=== PATIENT | female | born 1955 | race American Indian/Alaskan Native ===

== ENCOUNTER 2017-07-12 12:06 | Emergency (ER) | payer MEDICARE ==
[2017-07-12 12:06] VITALS: BMI 24.9
--- NOTE | 2017-07-12 13:22 | ED PDOC ---
Arrival/HPI - General Historian: Patient - History of Present Illness Time/Duration: < week Symptom Onset: Gradual Symptom Course: Worsening Severity Level: Severe <Nazario Banks - Last Filed: 07/12/17 17:15> <Odilon Romo - Last Filed: 07/13/17 12:37> - General Chief Complaint: Abnormal Skin Integrity Time Seen by Provider: 07/12/17 13:22 - History of Present Illness Narrative History of Present Illness (Text): 07/12/17 15:56 62yo F with PMHx of HTN, HLD, PVD here for evaluation of left labial abscess. She states that the abscess started three days ago and gradually became bigger and started getting worse. Denies any Fevers or chills. No active drainage. She states that she has had similar symptoms in the past. Did not require any I&D before as they resolved with sitz baths. She states that it has not helped at this time and the pain is severe. PMHx: HTN, HLD, PVD PSHx: Multiple peripheral arterial stents. 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 - HEENT Hx HEENT Disorder: No Other/Comment: ALLERGIC RHINITIS - Renal Hx Renal Disorder: Yes Hx Renal Failure: Yes (POST OP / RENAL FAILURE ONLY ONE KIDNEY IS FUNCTIONING) Other/Comment: RIGHT KIDNEY BLOKC STARTING TO SHRINK - Endocrine/Metabolic Hx Endocrine Disorders: No - Hematological/Oncological Hx Blood Disorders: Yes Hx Blood Transfusions: Yes Hx Blood Transfusion Reaction: Yes - Integumentary Hx Dermatological Disorder: No - Musculoskeletal/Rheumatological Hx Musculoskeletal Disorders: No - Gastrointestinal Hx Gastrointestinal Disorders: Yes Hx Fatty Liver Disease: Yes - Genitourinary/Gynecological Hx Genitourinary Disorders: No - Psychiatric Hx Psychophysiologic Disorder: No Hx Substance Use: No - Surgical History Hx Appendectomy: Yes Hx Tonsillectomy: Yes Hx Vascular Surgery: Yes (CEREBRAL ANEURYSM REPAIR) Other/Comment: BYPASS ARTERIES,ANEURYSM REPAIR. BOTH ARMS AND LEGS WITH VASCULAR BYPASS SURGERY - Anesthesia Hx Anesthesia: Yes Hx Anesthesia Reactions: Yes (RENAL FAILURE ) Hx Malignant Hyperthermia: No - Suicidal Assessment Feels Threatened In Home Enviroment: No <Nazario Banks - Last Filed: 07/12/17 17:15> Family/Social History - Physician Review Nursing Documentation Reviewed: Yes Family/Social History: Unknown Family HX Smoking Status: Current Some Days Smoker Hx Alcohol Use: No Hx Substance Use: No <Nazario Banks - Last Filed: 07/12/17 17:15> Allergies/Home Meds <Nazario Banks - Last Filed: 07/12/17 17:15> <Odilon Romo - Last Filed: 07/13/17 12:37> Allergies/Adverse Reactions: Allergies codeine Allergy (Verified 07/12/17 12:18) ITCHING Home Medications: Home Meds Medication Instructions Recorded Confirmed Atorvastatin Calcium [Lipitor] 40 mg PO DAILY 11/09/14 07/12/17 Clopidogrel [Plavix] 75 mg PO DAILY 11/09/14 07/12/17 Metoprolol Tartrate [Lopressor] 100 mg PO DAILY 11/09/14 07/12/17 amLODIPine [Norvasc] 10 mg PO DAILY 11/09/14 07/12/17 cloNIDine [Catapres] 0.1 mg PO DAILY 11/09/14 07/12/17 Zolpidem [Ambien] 10 mg PO HS PRN 08/12/16 07/12/17 Review of Systems - Physician Review All systems were reviewed & negative as marked: Yes - Review of Systems Constitutional: Normal. absent: Fevers Eyes: Normal ENT: Normal Respiratory: Normal Cardiovascular: Normal Gastrointestinal: Normal Genitourinary Female: Other (Left labial abscess) Musculoskeletal: Normal Skin: Abscess <Nazario Banks - Last Filed: 07/12/17 17:15> Physical Exam Vital Signs Reviewed: Yes Temperature: Afebrile Blood Pressure: Hypertensive Pulse: Regular Respiratory Rate: Normal Appearance: Positive for: Well-Appearing, Non-Toxic, Uncomfortable Pain Distress: Severe Mental Status: Positive for: Alert and Oriented X 3 - Systems Exam Head: Present: Atraumatic, Normocephalic Extroacular Muscles: Present: EOMI Mouth: Present: Moist Mucous Membranes Respiratory/Chest: Present: Clear to Auscultation, Good Air Exchange. No: Respiratory Distress, Accessory Muscle Use, Wheezes Cardiovascular: Present: Normal S1, S2. No: Murmurs Abdomen: No: Tenderness, Distention, Rebound, Guarding Genitourinary/Pelvic Exam: Present: Other (Left labial abscess approx 2cm. Severe tender to palpation. No active drainage. ) Upper Extremity: Present: Normal Inspection Lower Extremity: Present: Normal Inspection. No: Edema, CALF TENDERNESS Neurological: Present: GCS=15 Skin: Present: Abscess (left labial abscess) Lymphatic: No: Inguinal Adenopathy Psychiatric: Present: Alert, Oriented x 3 <Nazario Banks - Last Filed: 07/12/17 17:15> Medical Decision Making <Nazario Banks - Last Filed: 07/12/17 17:15> <Odilon Romo - Last Filed: 07/13/17 12:37> ED Course and Treatment: 07/12/17 16:05 62yo F with left bartholin cyst abscess - CHETAN candelaria present for all examinations and procedures - Attempted I&D bedside with local lidocaine. Patient did not tolerate the procedure due to pain. Procedure aborted after initial incision. Wound culture obtained and sent to lab. - Re Attempted I&D bedside with NO2 for comfort, however, again the patient did not tolerate the procedure and it was aborted. 07/12/17 16:06 - Patient is agreeable to conscious sedation. Obtained consent. EKG obtained. - Morphine - Propofol ordered and awaiting for availability bedside. Will attempt again with conscious sedation. 07/12/17 16:38 I&D procedure completed with conscious sedation. Patient tolerated procedure well. Propofol 90mg IVP used. Word Catheter inserted with 2.5ml of sterile saline to inflate balloon. Procedure: I&D left bartholin cyst abscess Time out performed. Patient cleaned with Betadine prep and draped in the usual sterile fashion. Lidocaine 1% 3ml used 1cm incision made and blunt hemostats were used break any loculations within the abscess cavity. Word catheter was inserted and 2.5ml of sterile saline to inflate balloon. Dressing applied by nursing staff. Patient tolerated procedure well. Discussed wound care and follow up with patient. Follow up with general surgery in one week. All questions and concerns addressed. (Nazario Banks) - Lab Interpretations Microbiology Results: Microbiology Results 07/12/17 14:53 Abscess - Abscess Gram Stain - Final 07/12/17 14:53 Abscess - Abscess Wound Culture - Preliminary NO GROWTH AFTER 24 HOURS - Medication Orders Current Medication Orders: Discontinued Medications Acetaminophen (Tylenol 325mg Tab) Confirm Administered Dose 650 mg .ROUTE .STK- MED ONE Stop: 07/12/17 13:28 Last Admin: 07/12/17 13:33 Dose: 650 mg Re-Assess: MAR Pain/Vitals Document 07/12/17 14:33 GMI (Rec: 07/12/17 15:12 [id number] Pain Reassessment Is This A Pain ReAssessment? Yes Sleep Is patient sleeping during reassessment? No Presence of Pain Presence of Pain Yes Pain Scale Used Pain Scale Used Numeric Location Left, Right or Bilateral Left Upper or Lower Lower Pain Location Body Site left labia Description Constant Sharp Throbbing Sodium Chloride (Sodium Chloride 0.9%) 1,000 mls @ 100 mls/hr IV .Q10H ALVARO Last Admin: 07/12/17 16:07 Dose: 100 mls/hr Lidocaine HCl (Lidocaine 1% (20ml)) Confirm Administered Dose 20 ml .ROUTE .STK- MED ONE Stop: 07/12/17 13:28 Morphine Sulfate (Morphine) 4 mg IVP STAT STA Stop: 07/12/17 15:52 Last Admin: 07/12/17 16:11 Dose: 4 mg Propofol (Diprivan) 200 mg IVP ONCE ONE Stop: 07/12/17 15:52 Last Admin: 07/12/17 16:40 Dose: Propofol (Diprivan) 90 mg IVP ONCE ONE Stop: 07/12/17 16:42 Last Admin: 07/12/17 16:42 Dose: 90 mg ED Procedural Sedation <Nazario Banks - Last Filed: 07/12/17 17:15> - Physical Exam/Review of Systems Vital Signs Reviewed: Yes Cardiovascular: Regular Rate and Rhythm Respiratory/Chest: Clear to Auscultation Neurological: GCS=15 Abdomen: denies: Tenderness Mental Status: Alert and Oriented X 3 - Pre-Procedure Airway Assessment ASA Criteria: 1 - Healthy, normal. 2 - Mild systemic disease (No functional limitations, mildline obesity, DM withot complications, Hypertention). 3 - Severe systemic disease (Some functional limitation, stable angina, morbid obesity, controlled COPD/Asthma/CHF). 4 - Sever systemic disease constant threat to life (Unstable angina, active symptoms of COPD/Asthma, CHF/ Hypertension. 5 - Moribund ASA Clarification: ASA II Mallampati (airway): Class II <Odilon Romo P - Last Filed: 07/13/17 12:37> - Pre Anesthesia Assessment Chief Complaint: Abnormal Skin Integrity Nursing ED Procedural Sedation: ER Moderate Sedation Start: 07/12/17 15: 44 Freq: Status: Active Document 07/12/17 15:44 GMI (Rec: 07/12/17 15:51 [place] [id number]) Mod Sedation Time Out Process Time Out Process Patient identification (MR# and name Yes from ID Band) Procedure verified Yes Consent read aloud and agreed upon Yes Correct Site/Side marked and visibe to Yes team after prepping and draping (unless exempt) Implants, special equipment and x-rays Not Applicable available Prophylactic antibiotic given (if Not Applicable applicable) Correct position Yes Correct Team Yes All team members are in agreement Yes Pre-Procedure Mod Sedation Pre Anesthesia Assessment Chief Complaint Abnormal Skin Integrity Moderate Sedation VS & Pain Ax Level of Consciousness Level of Consciousness 1 = Alert Temperature Temperature (97.6 F-99.6 F) 98.3 F Pulse Pulse Rate (60-90) 90 Respirations Respiratory Rate (12-24) 20 Oxygen Delivery Method Room Air Blood Pressure Blood Pressure (100/60-150/90) 131/80 Cardiac Rhythm Cardiac Rhythm nsr Pain Pain Intensity 10 Pain Scale Used Numeric Created 07/12/17 15:44 [facility] (Rec: 07/12/17 15:44 [email or web address] Document 07/12/17 16:30 GMI (Rec: 07/12/17 16:35 [email or web address] Mod Sedation Time Out Process Time Out Process Patient identification (MR# and name Yes from ID Band) Procedure verified Yes Consent read aloud and agreed upon Yes Correct Site/Side marked and visibe to Yes team after prepping and draping (unless exempt) Implants, special equipment and x-rays Not Applicable available Prophylactic antibiotic given (if Not Applicable applicable) Correct position Yes Correct Team Yes List all team members present Dr romo, Dr lang, Paige Barksdale, RN, Tejal Nix, RN All team members are in agreement Yes Person Verifying Action Taken Tejal Arias X Surgical/Procedural Emergency (See Org. Policy&Procedure #2. 61.0) Pre-Procedure Mod Sedation Pre-Procedure Checklist Patient's identity verified by Patient stating name Patient stating [facility] bracelet Family member Pre Procedure Checklist BP monitor Signed consent Ambu bag Patient IV Patient ID Oxygen Airway Code Cart End Tidal CO2 Suction set up Pre Anesthesia Assessment Chief Complaint Abnormal Skin Integrity Moderate Sedation VS & Pain Ax Level of Consciousness Level of Consciousness 1 = Alert Temperature Temperature (97.6 F-99.6 F) 98.2 F Pulse Pulse Rate (60-90) 78 Respirations Respiratory Rate (12-24) 18 Oxygen Delivery Method Room Air Cardiac Rhythm Cardiac Rhythm nsr Intra-Procedure Vital Signs Vital Signs and Pain Assessment Blood Pressure (100/60-150/90) 115/87 Pulse Rate (60-90) 99 Respiratory Rate (12-24) 20 Level of Consciousness 2 = Occasionally Drowsy, Easy to Arouse Pain Intensity 0 Cardiac Rhythm NSR Document 07/12/17 16:45 GMI (Rec: 07/12/17 17:40 [email or web address] Pre-Procedure Mod Sedation Pre Anesthesia Assessment Chief Complaint Abnormal Skin Integrity Intra-Procedure Vital Signs #2 Vital Signs and Pain Assessment Blood Pressure (100/60-150/90) 131/72 Pulse Rate (60-90) 73 Respiratory Rate (12-24) 20 Level of Consciousness 2 = Occasionally Drowsy, Easy to Arouse REACT Score REACT Score Respirations Spontaneous Respirations > 10 Without Airway Support Energy Moves Legs: Can Keep Head Up Alertness Awake Seldom Dozes Circulation Systolic BP At PreOp or Above Full Pulse Temperature Temperature is >96 Degrees Farenheit Document 07/12/17 17:01 GMI (Rec: 07/12/17 17:02 [email or web address] Pre-Procedure Mod Sedation Pre Anesthesia Assessment Chief Complaint Abnormal Skin Integrity Moderate Sedation VS & Pain Ax Level of Consciousness Level of Consciousness 1 = Alert Intra-Procedure Vital Signs #2 Vital Signs and Pain Assessment Blood Pressure (100/60-150/90) 127/83 Pulse Rate (60-90) 85 Respiratory Rate (12-24) 20 Level of Consciousness 1 = Alert Document 07/12/17 17:25 GMI (Rec: 07/12/17 17:44 [place] [id number]) Pre-Procedure Mod Sedation Pre Anesthesia Assessment Chief Complaint Abnormal Skin Integrity Discharge Checklist Written MD order for Discharge Yes Vital signs assessed and are consistent Yes with pre-procedure reading Voided (if applicable) Yes Minimal nausea, vomiting, and dizziness No Ambulates to pre-procedural level Yes Alert and oriented to pre-procedural Yes level Responsible adult escort present Yes DISCHARGE INSTRUCTIONS GIVEN: Yes Document 07/12/17 17:41 GMI (Rec: 07/12/17 17:42 [place] [id number]) Pre-Procedure Mod Sedation Pre Anesthesia Assessment Chief Complaint Abnormal Skin Integrity Intra-Procedure Vital Signs #4 Vital Signs and Pain Assessment Blood Pressure (100/60-150/90) 129/73 Pulse Rate (60-90) 81 Respiratory Rate (12-24) 20 Level of Consciousness 1 = Alert Pain Intensity 2 Cardiac Rhythm nsr REACT Score REACT Score Respirations Spontaneous Respirations > 10 Without Airway Support Energy Moves Legs: Can Keep Head Up Alertness Awake Seldom Dozes Circulation Systolic BP At PreOp or Above Full Pulse Temperature Temperature is >96 Degrees Farenheit - Intra-Procedure (Medications) Medications Given: Discontinued Medications Acetaminophen (Tylenol 325mg Tab) Confirm Administered Dose 650 mg .ROUTE .STK- MED ONE Stop: 07/12/17 13:28 Last Admin: 07/12/17 13:33 Dose: 650 mg Re-Assess: MAR Pain/Vitals Document 07/12/17 14:33 GMI (Rec: 07/12/17 15:12 [place] [id number]) Pain Reassessment Is This A Pain ReAssessment? Yes Sleep Is patient sleeping during reassessment? No Presence of Pain Presence of Pain Yes Pain Scale Used Pain Scale Used Numeric Location Left, Right or Bilateral Left Upper or Lower Lower Pain Location Body Site left labia Description Constant Sharp Throbbing Sodium Chloride (Sodium Chloride 0.9%) 1,000 mls @ 100 mls/hr IV .Q10H ALVARO Last Admin: 07/12/17 16:07 Dose: 100 mls/hr Lidocaine HCl (Lidocaine 1% (20ml)) Confirm Administered Dose 20 ml .ROUTE .STK- MED ONE Stop: 07/12/17 13:28 Morphine Sulfate (Morphine) 4 mg IVP STAT STA Stop: 07/12/17 15:52 Last Admin: 07/12/17 16:11 Dose: 4 mg Propofol (Diprivan) 200 mg IVP ONCE ONE Stop: 07/12/17 15:52 Last Admin: 07/12/17 16:40 Dose: Propofol (Diprivan) 90 mg IVP ONCE ONE Stop: 07/12/17 16:42 Last Admin: 07/12/17 16:42 Dose: 90 mg - Post-Procedure Post Procedure Note: the pt was on continuous cardiac and resp monitoring during the procedure the pt tolerated the procedure well without immediate complication. (Odilon Romo) - PA / BASE MANAGER / Resident Statement / has reviewed & agrees with the documentation as recorded. / has examined the patient and agrees with the treatment plan. <Nazario Banks - Last Filed: 07/12/17 17:15> Disposition/Present on Arrival - Present on Arrival Any Indicators Present on Arrival: No History of DVT/PE: No History of Uncontrolled Diabetes: No Urinary Catheter: No History of Decub. Ulcer: No History Surgical Site Infection Following: None - Disposition Have Diagnosis and Disposition been Completed?: Yes Disposition Time: 16:51 Patient Plan: Discharge <Nazario Banks - Last Filed: 07/12/17 17:15> <Odilon Romo - Last Filed: 07/13/17 12:37> - Disposition Diagnosis: Bartholin's gland abscess Disposition: HOME/ ROUTINE Condition: GOOD Discharge Instructions (ExitCare): Incision and Drainage (ED) Additional Instructions: 1. Follow up with your primary care physician as soon as possible. 2. Follow up with General Surgery in 1 week. Call for appointment 3. Take antibiotics as directed to completion 4. Take Tramadol as directed as needed for pain 5. Keep Word Catheter in place for 3-4 weeks. Use Feminine Pads to allow for drainage. 6. Return to the ER with any concerning symptoms or if you have any problems obtaining adequate follow up. Prescriptions: Sulfamethoxazole/Trimethoprim [Bactrim DS 800 mg-160 mg] 2 tab PO Q12 #20 tab traMADol [Ultram] 50 mg PO TID PRN #10 tab PRN Reason: Pain, Moderate (4-7) Referrals: Beatrice Hall MD [Staff Provider] - Follow up with primary Jarek Holden [Primary Care Provider] - Follow up with primary Forms: [employer] ([employer])
[2017-07-12] MEDS ORDERED: Lidocaine 1% Inj (20ml) ONE (13:27)
[2017-07-12 14:36] VITALS: RESP 20
[2017-07-12] MEDS ORDERED: Morphine 4 mg/ml ISec IVP STA (15:51)
[2017-07-12] MEDS ORDERED: Sodium Chloride 0.9% 1,000 ML IV SCH (16:15)
[2017-07-12] MEDS: Propofol 10 mg/ml Inj (20 ML) IVP ONE ×2 (16:24→16:40)
[2017-07-12] MEDS ORDERED: Propofol 10 mg/ml Inj (20 ML) IVP ONE (16:41)
[2017-07-12 17:28] VITALS: TEMP 98; O2SAT 99
[2017-07-12 17:43] VITALS: BP 129/73; PULSE 81
--- NOTE | 2017-07-14 13:23 | CARD ---
APPROVED REPORT EKG Measurement Heart [id number] <Conclusion> Normal sinus rhythm with sinus arrhythmia Biatrial enlargement Left ventricular hypertrophy with repolarization abnormality Anterior infarct, age undetermined Consider lateral ischemia Abnormal ECG
== END 2017-07-12 17:34 | disposition home or self-care (01) ==
LOC: ED 12:06
DX: N75.1 Abscess of Bartholin's gland (principal)
CPT/HCPCS: 56420; 87070; 93005; 96374; 99285; J2270; J2704; J7040